=== PATIENT | female | born 1975 | race Caucasian/White ===

== ENCOUNTER 2020-05-24 04:32 | Emergency (ER) | payer BC ==
[2020-05-24] MEDS ORDERED: Nitroglycerin 0.4 MG Tab.SL SL ONE (04:53)
--- NOTE | 2020-05-24 04:58 | EDM.PDOC ---
ED HPI GENERAL MEDICAL PROBLEM - General Chief Complaint: Chest Pain Stated Complaint: CHEST PAIN Time Seen by Provider: 05/24/20 04:40 Source of Information: Reports: Patient History Limitations: Reports: No Limitations - History of Present Illness INITIAL COMMENTS - FREE TEXT/NARRATIVE: This is a 44-year-old female. She awoke this morning with tightness in her mid chest area and epigastric area. She was little concerned about a sure she got up and started pacing developed palpitations and possibly shortness of breath. The pain in her chest did not radiate into her arm or her neck. 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 She does not have any history of reflux or burning sensation. But she was eating rather late last night. She does have a history of atrial fib but no angina. She comes to the ER for evaluation. No recent illnesses no colds no coughs no fever or chills. Chest Pain Score (Numeric/FACES): 6 - Related Data Allergies Allergy/AdvReac Type Severity Reaction Status Date / Time No Known Allergies Allergy Verified 05/24/20 04:40 Home Meds: Home Meds Meclizine HCl [Motion Sickness Relief] 25 mg PO Q6H PRN 05/24/20 [History] Nitroglycerin 0.4 mg SL ASDIRECTED PRN #1 bottle 05/24/20 [Rx] Past Medical History Cardiovascular History: Reports: Afib, High Cholesterol Neurological History: Reports: Vertigo - Past Surgical History Female Surgical History: Reports: Hysterectomy, Tubal Ligation Social & Family History - Tobacco Use Smoking Status *Q: Current Every Day Smoker Years of Tobacco use: 31 Packs/Tins Daily: 1 - Recreational Drug Use Recreational Drug Use: No ED ROS GENERAL - Review of Systems Review Of Systems: See Below Constitutional: Denies: Fever, Chills HEENT: Reports: No Symptoms Respiratory: Denies: Shortness of Breath, Cough Cardiovascular: Reports: Chest Pain Endocrine: Reports: No Symptoms GI/Abdominal: Denies: Abdominal Pain, Diarrhea, Nausea, Vomiting : Reports: No Symptoms Musculoskeletal: Reports: No Symptoms Skin: Reports: No Symptoms Neurological: Reports: No Symptoms Psychiatric: Reports: No Symptoms Hematologic/Lymphatic: Reports: No Symptoms ED EXAM, GENERAL - Physical Exam Exam: See Below Exam Limited By: No Limitations General Appearance: Alert, WD/WN, Anxious Eye Exam: Bilateral Eye: Normal Inspection Ears: Normal External Exam Nose: Normal Inspection Throat/Mouth: Normal Lips, Normal Voice, No Airway Compromise Head: Normocephalic Neck: Supple Respiratory/Chest: No Respiratory Distress, Lungs Clear, Normal Breath Sounds Cardiovascular: Regular Rate, Rhythm, No Murmur, Other (Possibly a faint systolic ejection murmur) GI/Abdominal: Soft, Non-Tender Back Exam: Full Range of Motion Extremities: Normal Inspection, Normal Range of Motion Neurological: Alert, Oriented Psychiatric: Normal Affect, Normal Mood Skin Exam: Warm, Dry EKG INTERPRETATION EKG Date: 05/24/20 Time: 04:35 EKG Interpretation Comments: Normal sinus rhythm no acute ST or T wave changes or elevation and no ischemia she does appear to have some flipped T waves in the inferior leads and the lateral leads but the ST does not appear to be depressed. Course - Vital Signs Last Recorded V/S: Last Vital Signs Temp 97 F 05/24/20 04:38 Pulse 73 05/24/20 04:38 Resp 14 05/24/20 04:38 BP 107/68 05/24/20 04:59 Pulse Ox 96 05/24/20 04:38 - Orders/Labs/Meds Orders: Active Orders 24 hr Category Date Time Status EKG Documentation Completion [RC] ASDIRECTED Care 05/24/20 04:47 Active EKG 12 Lead [EK] Stat Ther 05/24/20 04:47 Ordered Labs: Laboratory Tests 05/24/20 05/24/20 05/24/20 Range/Units 04:45 04:45 06:41 WBC 8.63 (3.98-10.04) K/mm3 RBC 4.00 (3.98-5.22) M/mm3 Hgb 12.4 (11.2-15.7) gm/dl Hct 37.6 (34.1-44.9) % MCV 94.0 (79.4-94.8) fl MCH 31.0 (25.6-32.2) pg MCHC 33.0 (32.2-35.5) g/dl RDW Std Deviation 43.2 (36.4-46.3) fL Plt Count 212 (182-369) K/mm3 MPV 9.0 L (9.4-12.3) fl Neut % (Auto) 75.3 H (34.0-71.1) % Lymph % (Auto) 14.8 L (19.3-51.7) % Perkins % (Auto) 7.6 (4.7-12.5) % Eos % (Auto) 1.9 (0.7-5.8) Baso % (Auto) 0.2 (0.1-1.2) % Neut # (Auto) 6.49 H (1.56-6.13) K/mm3 Lymph # (Auto) 1.28 (1.18-3.74) K/mm3 Perkins # (Auto) 0.66 H (0.24-0.36) K/mm3 Eos # (Auto) 0.16 (0.04-0.36) K/mm3 Baso # (Auto) 0.02 (0.01-0.08) K/mm3 Sodium 140 (136-145) mEq/L Potassium 3.5 (3.5-5.1) mEq/L Chloride 106 (98-107) mEq/L Carbon Dioxide 26 (21-32) mEq/L Anion Gap 11.5 (5-15) BUN 13 (7-18) mg/dL Creatinine 0.8 (0.55-1.02) mg/dL Est Cr Clr Drug Dosing 84.01 mL/min Estimated GFR (MDRD) > 60 (>60) mL/min BUN/Creatinine Ratio 16.3 (14-18) Glucose 124 H (74-106) mg/dL Calcium 8.8 (8.5-10.1) mg/dL Total Bilirubin 0.2 (0.2-1.0) mg/dL AST 13 L (15-37) U/L ALT 19 (14-59) U/L Alkaline Phosphatase 45 L (46-116) U/L Troponin I < 0.017 < 0.017 (0.00-0.056) ng/mL Total Protein 6.3 L (6.4-8.2) g/dl Albumin 3.1 L (3.4-5.0) g/dl Globulin 3.2 gm/dL Albumin/Globulin Ratio 1.0 (1-2) Meds: Medications Discontinued Medications Generic Name Dose Route Start Last Admin Trade Name Freq PRN Reason Stop Dose Admin Nitroglycerin 0.4 mg 05/24/20 04:53 05/24/20 04:59 Nitrostat SL 05/24/20 04:54 0.4 mg ONETIME ONE Administration - Re-Assessments/Exams Free Text/Narrative Re-Assessment/Exam: 05/24/20 05:53 Spoke to the patient regarding her first draw of blood work the CBC and CMP were normal and her troponin was normal. Redraw another troponin in about 25 minutes and as long as that is normal we will get her home. She says the nitroglycerin really did not make any difference whatsoever in her symptoms. 05/24/20 07:27 I spoke to the patient and her regarding the second negative troponin. She is not having a myocardial infarction presently. She does have a strain pattern however with flipped T waves in inferior and lateral leads. I encouraged her to follow-up with her granite countertop installer when she gets home. The strain pattern could be absolutely nothing could be related to some mild ischemia and they have even found it could be related to depression and anxiety. She states she will follow-up with her granite countertop installer when she gets home. Departure - Departure Time of Disposition: 07:28 Disposition: Home, Self-Care 01 Condition: Good Clinical Impression: Atypical chest pain Prescriptions: Nitroglycerin 0.4 mg SL ASDIRECTED PRN #1 bottle PRN Reason: Pain Instructions: Nonspecific Chest Pain, Adult, [id number] Forms: ED Department Discharge Additional Instructions: Continue with normal activity, if the chest pain worsens markedly with shortness of breath or sweating or going into your jaw or down the left arm use the nitroglycerin, follow-up with your granite countertop installer when you get home for recheck of that strain pattern in your EKG, return to the ER if needed Sepsis Event Note (ED) - Evaluation Sepsis Screening Result: No Definite Risk - Focused Exam Vital Signs: Vital Signs Temp Pulse Resp BP BP Pulse Ox 05/24/20 04:59 107/68 05/24/20 04:38 97 F 73 14 113/57 L 96 - My Orders Last 24 Hours: My Active Orders 05/24/20 04:47 EKG Documentation Completion [RC] ASDIRECTED EKG 12 Lead [EK] Stat - Assessment/Plan Last 24 Hours: My Active Orders 05/24/20 04:47 EKG Documentation Completion [RC] ASDIRECTED EKG 12 Lead [EK] Stat
== END 2020-05-24 07:37 | disposition home or self-care (01) ==
LOC: JD.ED 04:32
DX: R07.89 Other chest pain (principal); I48.91 Unspecified atrial fibrillation; F17.210 Nicotine dependence, cigarettes, uncomplicated
CPT/HCPCS: 36415; 80053; 84484; 85025; 93005; 99285; A9270; 93010; 99284